=== PATIENT | female | born 1955 | race Caucasian/White ===

== ENCOUNTER 2016-11-12 22:10 | Emergency (ER) | payer BC ==
--- NOTE | 2016-11-12 22:30 | Emergency Department Record ---
History of Present Illness - General Chief complaint: Flank Pain Stated complaint: RT SIDE BACK RIB PAIN Time Seen by Provider: 11/12/16 22:22 Source: Patient Mode of Arrival: Ambulatory Limitations: No limitations - History of Present Illness Initial comments: 60 yo female presents to ED with a CC of right sided flank pain that has progressively worsened throughout the day. Patient reports that her pain symptoms radiate from the right flank around to the right groin area. Patient denies history of these symptoms, denies fevers, chills, abdominal pain, or vomiting. Patient does report previous LUIS and cholecystectomy. MD Complaint: Other (flank pain) Onset/Timin -: Days(s) Radiation: RLQ Severity: Severe Quality: Cramping Consistency: Constant Improves with: None Worsens with: None Patient : No Associated Symptoms: Nausea/vomiting - Related Data Home Medications Medication Instructions Recorded Confirmed Last Taken Celecoxib [Celebrex] 200 mg PO BID 11/12/16 11/12/16 Unknown Dicyclomine HCl [Bentyl] 10 mg PO Q8H PRN 11/12/16 11/12/16 Unknown Losartan/Hydrochlorothiazide 1 each PO DAILY 11/12/16 11/12/16 Unknown [Losartan-Hctz 50-12.5 mg Tab] Metformin HCl [Glucophage] 1,000 mg PO BID 11/12/16 11/12/16 Unknown Ranitidine HCl [Zantac] 150 mg PO BID PRN 11/12/16 11/12/16 Unknown Sitagliptin Phosphate [Januvia] 50 mg PO DAILY 11/12/16 11/12/16 Unknown Previous Rx's Medication Instructions Recorded Ciprofloxacin HCl [Cipro] 500 mg PO Q12HR #20 tablet 11/12/16 Allergies Allergy/AdvReac Type Severity Reaction Status Date / Time No Known Drug Allergies Allergy Verified 11/12/16 22:32 Review of Systems Constitutional: Denies: Chills, Fever, Malaise, Night sweats Eyes: Denies: Eye discharge, Eye pain ENT: Denies: Congestion, Ear pain Respiratory: Denies: Cough, Dyspnea, Hemoptysis Cardiovascular: Denies: Chest pain, Dyspnea on exertion Endocrine: Denies: Fatigue, Heat or cold intolerance Gastrointestinal: Reports: Nausea. Denies: Abdominal pain, Constipation, Vomiting Genitourinary: Denies: Dysuria, Hematuria, Incontinence, Retention Musculoskeletal: Reports: Back pain. Denies: Arthralgia, Gout, Joint swelling Skin: Denies: Bruising, Change in color Neurological: Denies: Abnormal gait, Confusion, Headache, Seizure Psychiatric: Denies: Anxiety Hematological/Lymphatic: Denies: Anemia, Blood Clots Physical Exam - General General Appearance: Alert, Oriented x3, Cooperative, Moderate distress Limitations: No limitations - Head Head exam: Atraumatic, Normocephalic, Normal inspection Head exam detail: negative: Abrasion, Contusion, Mcgovern's sign, General tenderness, Hematoma, Laceration - Eye Eye exam: Normal appearance. negative: Conjunctival injection, Periorbital swelling, Periorbital tenderness, Scleral icterus - ENT Ear exam: negative: Auricular hematoma, Auricular trauma Nasal Exam: negative: Active bleeding, Discharge, Dried blood, Foreign body Mouth exam: negative: Drooling, Laceration, Muffled voice, Tongue elevation - Neck Neck exam: Normal inspection. negative: Meningismus, Tenderness - Respiratory Respiratory exam: Normal lung sounds bilaterally. negative: Rales, Respiratory distress, Rhonchi, Stridor - Cardiovascular Cardiovascular Exam: Regular rate, Normal rhythm, Normal heart sounds - GI/Abdominal GI/Abdominal exam: Soft. negative: Rebound, Rigid, Tenderness - Rectal Rectal exam: Deferred - exam: Deferred - Extremities Extremities exam: Normal inspection. negative: Calf tenderness, Pedal edema, Tenderness - Back Back exam: Reports: CVA tenderness (R). Denies: CVA tenderness (L) - Neurological Neurological exam: Alert, Normal gait, Oriented X3 - Psychiatric Psychiatric exam: Normal affect, Normal mood - Skin Skin exam: Normal color. negative: Abrasion Type of lesion: negative: abrasion Course - Reevaluation(s) Reevaluation #1: 11/12/16 22:46 UA reviewed, 3-6 RBCs, 3-5 WBCs, and few bacteria. Reevaluation #2: 11/12/16 23:03 Labs reviewed and are grossly unremarkable for an acute process. Reevaluation #3: 11/12/16 23:38 Patient's repeat temperature 101, Rocephin ordered for possible pyelonephritis. CT Abdomen and Pelvis: Mild right sided hydronephrosis and right hydroureter without evidence for obstructing calculus in the right ureter or bladder. Findings may relate to to recently passed stone. Normal appendix Hepatic steatosis. Patient was updated on all results, reports that she is resting pain-free currently. Medical Decision Making - Lab Data Result diagrams: 11/12/16 22:25 11/12/16 22:25 Disposition Disposition: Discharge Clinical Impression: Pyelonephritis Disposition: Home, Self-Care Condition: (2) Stable Instructions: Kidney Infection (ED) Additional Instructions: Return to ED in 12-24 hours for a recheck on your symptoms. Cipro twice daily for 10 days Follow-up with your family doctor in 1-3 days as directed. Prescriptions: Ciprofloxacin HCl [Cipro] 500 mg PO Q12HR #20 tablet Forms: Patient Portal Access Time of Disposition: 23:44 Quality - Quality Measures Quality Measures: N/A - Blood Pressure Screening Does Patient Have Any of the Following: No Blood Pressure Classification: Pre-Hypertensive BP Reading Systolic Measurement: 133 Diastolic Measurement: 63 Screening for High Blood Pressure: < Pre-Hypertensive BP, F/U Documented > [ [id number]] Pre-Hypertensive Follow-up Interventions: Referral to alternative/primary care provider.
[2016-11-12] MEDS: ONDANSETRON HCL IV 4 MG/2 ML VIAL IVP ONE (22:35)
[2016-11-12] MEDS: MORPHINE SULFATE 5 MG/ML PFS IVP ONE (22:35)
[2016-11-12 22:38] LABS: BASO % 0.3 % (0-6); EOS % 2.4 % (0-6); GRAN % 78.4 % (47-80); HEMATOCRIT 39.7 % (35.0-47.0); HEMOGLOBIN 13.8 gm/dl (11.6-16.0); LYMPH % 13.4 % (16-45); MEAN CELL VOLUME 93.4 fl (81-97); MEAN CORPUSCULAR HEMOGLOBIN 32.5 pg (27-33); MEAN CORPUSCULAR HGB CONC 34.8 g/dl (32-36); MEAN PLATELET VOLUME 9.7 fl (7.4-10.4); MONO % 5.5 % (0-9); PLATELET COUNT 271 K/uL (130-400); RED BLOOD COUNT 4.25 M/uL (3.80-5.40); WHITE BLOOD COUNT W/O DIFF 11.1 K/uL (4.2-12.2)
[2016-11-12 22:41] LABS: URINE APPEARANCE CLEAR; URINE BILIRUBIN NEGATIVE (NEGATIVE); URINE BLOOD MODERATE (NEGATIVE); URINE COLOR YELLOW; URINE GLUCOSE (UA) NEGATIVE (NEGATIVE); URINE KETONE NEGATIVE (NEGATIVE); URINE LEUKOCYTE ESTERASE MODERATE (NEGATIVE); URINE NITRITE NEGATIVE (NEGATIVE); URINE PROTEIN NEGATIVE (NEGATIVE); URINE UROBILINOGEN 0.2 E.U./dL (0.20 - 1.00)
[2016-11-12 22:45] LABS: URINE BACTERIA FEW; URINE EPITHELIAL CELLS 0 - 2 (FEW)
[2016-11-12] MEDS: 0.9 % SODIUM CHLORIDE 1000ML 1,000 ML IV SCH (22:45)
[2016-11-12 22:55] LABS: ALB/GLOB RATIO 1.6 (1.1-1.8); ALBUMIN 4.5 g/dL (4.0-5.0); ALKALINE PHOSPHATASE 70 U/L (35-104); ALT/SGPT 29 U/L (<33); AST/SGOT 16 U/L (10.0-35.0); BLOOD UREA NITROGEN 18 mg/dL (6-20); CREATININE 0.8 mg/dL (0.5-0.9); EST GLOMERULAR FILTRATION RATE > 60 mL/min; GLUCOSE,RANDOM 169 mg/dL (74-109); TOTAL PROTEIN 7.4 g/dL (6.6-8.7)
[2016-11-12] MEDS: KETOROLAC 30 MG/ML VIAL IVP ONE (23:03)
[2016-11-12] MEDS: ACETAMINOPHEN 500 MG TABLET PO ONE (23:35)
[2016-11-12] MEDS: CEFTRIAXONE SODIUM 1 GM in 0.9 % SODIUM CHLORIDE 100ML 100 ML IVPB ONE (23:41)
--- NOTE | 2016-11-14 18:57 | CT SCAN REPORT ---
EXAM: CT SCAN ABDOMEN/PELVIS WO CONTRAST HISTORY: ACUTE RIGHT LOWER QUADRANT ABDOMINAL PAIN. COMPARISON: None. TECHNIQUE: Contiguous axial images from the lung bases through the symphysis pubis were obtained without IV contrast. FINDINGS: The lung bases are clear. Decreased attenuation throughout the liver consistent with fatty infiltration. Nonenlarged spleen with calcified granulomata. Mild right hydroureteronephrosis. No renal calculi or ureteral calculi. A 10 mm fat-density mid left kidney consistent with benign angiomyolipoma. Adrenals and pancreas are unremarkable. Gallbladder is absent. Visualized loops of small and large bowel of normal caliber with no wall thickening. Normal appendix. Moderate fecal material throughout the colon. Mild aortoiliac calcification without aneurysm. No free intraperitoneal fluid or adenopathy. Osseous structures reveal fusion hardware from L4 to L5. No lytic or blastic lesion. IMPRESSION: 1. MILD RIGHT HYDROURETERONEPHROSIS WITHOUT OBSTRUCTING CALCULUS. FINDINGS MAY RELATE TO RECENTLY PASSED RIGHT URETERAL CALCULUS VS. URINARY TRACT INFECTION. CORRELATE WITH URINE STUDIES. 2. NORMAL APPENDIX. 3. HEPATIC STEATOSIS. JOB NUMBER: [id number] [facility]
== END 2016-11-13 00:20 | disposition home or self-care (01) ==
LOC: ER 22:10
DX: N10 Acute pyelonephritis (principal); R11.2 Nausea with vomiting, unspecified; R10.31 Right lower quadrant pain
CPT/HCPCS: 99284 ×2; 96374; 96375; 85025; 80053; 81001; 74176; J1885; J2405; J2270; J7030